=== PATIENT | male | born 1965 | race Caucasian/White ===

== ENCOUNTER → 2016-07-13 | Outpatient (CLI) | payer BC ==
--- NOTE | 2016-07-13 10:01 | RAD ---
PROCEDURE MRI study of the left wrist without contrast HISTORY Anterior wrist pain and burning. No known recent injury. No surgical history. TECHNIQUE Noncontrast MRI sequences of the left wrist were performed in all 3 planes. COMPARISON None available. FINDINGS No fracture or bone marrow edema or marrow infiltrative process or bone contusion is seen. There are degenerative cystic changes of the distal ulna and multiple carpal bones. Degenerative spurring of the radial carpal joint and the distal radial ulnar joint and multiple intercarpal joints is seen. The znesyj-gocyai-dpkpesix axis is normal. No avascular necrosis is seen. No widening of the scaphoid lunate joint compartment or the lunate triquetrum joint compartment is seen. The ligaments of these 2 compartments appear intact. There is signal abnormality of the triangular fibrocartilage complex medially and laterally. There is focal thinning or perforation of the radial attachment of this cartilage complex. A small distal radial ulnar joint effusion is seen. Small radiocarpal joint effusion and intercarpal joint effusions are seen. There is tendinosis and partial longitudinal tear of the extensor carpi ulnaris tendon which is dislocated medially out of the distal ulnar groove. Mild tenosynovitis is seen here. There is tendinosis and partial longitudinal tear of the flexor carpi radialis tendon. Mild tenosynovitis is seen here. The carpal tunnel is normal and no mass is seen here. 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 Multiple degenerative cystic changes are seen. This includes the distal ulna. This may be seen with old rheumatoid arthritis if there is a clinical history of such. Multiple joint effusions. No fracture or avascular necrosis is seen. Degeneration of the triangular fibrocartilage complex with focal thinning or perforation of the radial attachment of this complex. Ulnar variance is negative by 3 millimeters. Tendinosis and partial longitudinal tears with tenosynovitis involving the extensor carpi ulnaris tendon and the flexor carpi radialis tendon. The extensor carpi ulnaris tendon is dislocated medially out of the distal ulnar groove. Electronically signed by: Agustin Flores MD (Jul 13, 2016 09:59:51)
== END | disposition home or self-care (01) ==
LOC: MRI 07:41
PROVIDERS: ATTEND Orthopaedic Surgery Sports Medicine
DX: M19.032 Primary osteoarthritis, left wrist (principal); M25.432 Effusion, left wrist
CPT/HCPCS: 73221

== ENCOUNTER → 2017-11-08 | Outpatient (CLI) | payer BC ==
--- NOTE | 2017-11-08 16:48 | KCIC ---
EXAM: Maxillofacial bone CT without contrast. HISTORY: Cough. TECHNIQUE: Computed tomographic images of the maxillofacial bones were obtained without contrast. *One or more of the following individualized dose reduction techniques were utilized for this examination: 1. Automated exposure control. 2. Adjustment of the mA and/or kV according to patient size. 3. Use of iterative reconstruction technique. COMPARISON: None. FINDINGS: There is minimal superior right greater than left maxillary sinus mucosal thickening with slight attenuation of the right ostiomeatal unit. There is minimal nasal septal deviation. There is no air-fluid level. There is no sinus wall erosion or thickening. The orbits and mastoid air cells are unremarkable. The temporomandibular joints are intact. There is an unerupted tooth within the anterior right maxilla. IMPRESSION: No evidence of acute or chronic sinusitis. Electronically signed by: Shelli Chapa MD (11/08/2017 4:44 PM) [place] [id number]
== END | disposition home or self-care (01) ==
LOC: KCIC CT 12:13
PROVIDERS: ATTEND Otolaryngology
DX: J34.2 Deviated nasal septum (principal); K00.6 Disturbances in tooth eruption; R05 Cough
CPT/HCPCS: 70486

== ENCOUNTER → 2020-04-04 | Outpatient (CLI) | payer BC ==
[2017-12-16 14:47] VITALS: BP 123/80
[~2020-04-04] MED LIST: AMLO-187 PO; ASPI325T8 PO; HYDR-2765 PO; LOSA-73 PO; OMEP40CA7 PO; PROM25TA10 PO; RANI150T2 PO; VENL37.5 PO; VENL75TA PO
--- NOTE | 2020-04-04 16:58 | KCIC ---
MRI STUDY OF THE RIGHT KNEE WITHOUT CONTRAST CLINICAL INDICATIONS: Chronic lateral right knee pain. TECHNIQUE: T1 and T2 and proton density weighted MRI sequences of the right knee was performed. Image s were obtained in all 3 planes. COMPARISON: None available. FINDINGS: The anterior and posterior cruciate ligaments are intact. The quadriceps and patellar tendo ns are intact. Horizontal cleavage tear with intrameniscal cyst and parameniscal cyst is seen involvi ng the anterior horn of the lateral meniscus. The parameniscal cyst measures 7 mm in size. There is a horizontal cleavage tear of the body of the lateral meniscus with a parameniscal cyst measuring 6 mm in size. Mild truncation of the inner articular edge of the body of the lateral meniscus is seen. No articular surface tear of the medial meniscus is seen. The medial collateral ligament is intact and no meniscocapsular separation is seen. The lateral collateral ligament complex and iliotibial band an d popliteus tendon are intact. No posterior lateral corner injury is seen. No bone contusion or fract ure or marrow infiltrative process is seen. Small degenerative cyst of the lateral tibial spine is se en. There is mild chondromalacia and thinning of the articular cartilage of the medial femoral condyl e. There is moderate chondromalacia of the posterior aspect of the lateral femoral condyle articular cartilage with a linear defect seen extending posteriorly into the nonweightbearing portion. This is seen best on the axial images. There is mild degenerative spurring of the medial and lateral tibial f emoral joint compartments. There is mild lateral subluxation of the patella. The trochlear groove to anterior tibial tubercle distance is 16 mm which is within normal limits. There is moderate chondroma lacia patellae with linear fissure or defect of the medial patellar facet extending to the apex. Ther e is mild chondromalacia patellae of the lateral patellar facet. Trochlear articular cartilage is unr emarkable. The medial and lateral retinacular ligaments are intact. No distended Butt's cyst is seen . Small knee joint effusion is seen. No loose body is seen. No muscle edema is evident. IMPRESSION: Horizontal cleavage tears of the lateral meniscus with parameniscal cysts. Moderate chondromalacia with linear defect or flap of the posterior aspect of the lateral femoral art icular cartilage. Mild chondromalacia of the medial femoral condyle. Moderate chondromalacia patellae. No ligament or tendon tear. Electronically signed by: Agustin Flores MD (04/04/2020 4:55 PM) [id number]
== END ==
LOC: KCIC MRI 14:02
PROVIDERS: ATTEND Physician Assistant Medical
DX: S83.281A Other tear of lateral meniscus, current injury, right knee, initial encounter (principal); M17.11 Unilateral primary osteoarthritis, right knee; M25.461 Effusion, right knee; X58.XXXA Exposure to other specified factors, initial encounter; Y93.89 Activity, other specified; Y92.89 Other specified places as the place of occurrence of the external cause; Y99.8 Other external cause status
CPT/HCPCS: 73721

== ENCOUNTER → 2020-04-16 | Outpatient (CLI) | payer BC ==
[2017-12-16 14:47] VITALS: BP 123/80
== END ==
LOC: LAB 11:39
PROVIDERS: ATTEND Orthopaedic Surgery
DX: Z01.812 Encounter for preprocedural laboratory examination (principal); Z20.828 Contact with and (suspected) exposure to other viral communicable diseases
CPT/HCPCS: U0003

== ENCOUNTER 2020-04-19 07:06 | Day surgery (SDC) | payer BC ==
[~2020-04-19] VITALS: Ht 180.3 cm; Wt 132.0 kg
[~2020-04-19 07:06] MED LIST changes: -ASPI325T8 PO; -HYDR-2765 PO; +OMEP40CA45 PO; -OMEP40CA7 PO; -PROM25TA10 PO; +ceFAZolin SODIUM 3 GM in IV DEXTROSE 5% 100ML 100 ML IV PRN
[2020-04-19] MEDS: IV RINGERS,LACTATED 1000ML 1,000 ML IV SCH ×4 (07:51→09:59)
[2020-04-19] MEDS ORDERED: HYDROmorphone 2 MG/ML VIAL IVP PRN (08:00)
[2020-04-19] MEDS ORDERED: PROCHLORPERAZINE 10 MG/2 ML VIAL. IVP PRN (08:00)
[2020-04-19] MEDS ORDERED: MORPHINE SULFATE 2 MG/ML VIAL. IVP PRN (08:00)
[2020-04-19] MEDS ORDERED: fentaNYL PF VIAL 100 MCG/2 ML VIAL IVP PRN (08:00)
[2020-04-19] MEDS ORDERED: DEXAMETHASONE SOD PHOS 4 MG/ML VIAL ONE (08:37)
[2020-04-19] MEDS ORDERED: LIDOCAINE 2% PF 5 ML VIAL. ONE (08:37)
[2020-04-19] MEDS ORDERED: PROPOFOL 10 MG/ML (20ML) VIAL. IV ONE (08:37)
[2020-04-19] MEDS ORDERED: fentaNYL PF VIAL 100 MCG/2 ML VIAL ONE ×2 (08:37→10:57)
[2020-04-19] MEDS ORDERED: ONDANSETRON PF 4 MG/2 ML VIAL. ONE (08:37)
[2020-04-19] MEDS ORDERED: EPINEPHrine VIAL 30 MG/30 ML VIAL ONE (09:03)
[2020-04-19] MEDS ORDERED: BUPIVACAINE-EPI 0.25% 30 ML VIAL KIT. ONE ×2 (09:04→09:39)
[2020-04-19] MEDS ORDERED: KETOROLAC 30 MG/ML VIAL. ONE (09:30)
[2020-04-19] MEDS ORDERED: SEVOFLURANE 61 TO 120 MINUTES. IH ONE (09:30)
--- NOTE | 2020-04-19 10:08 | PDOC4 ---
Operative Note Operative Note Date of Procedure: April 19, 2020 Preoperative Diagnosis: right knee lateral meniscus tear Postoperative Diagnosis: complex tear of lateral meniscus, current injury, right knee, initial encounter, S83.271A complex tear medial meniscus, current injury, right knee, initial encounter, S83.231A Procedures Performed: right knee arthroscopy, surgical, with meniscectomy, medial AND lateral, including meniscal shaving, including debridement/shaving of articular cartilage (chondroplasty) CPT 89115 Surgeon: Dorene Prieto MD Director Financial Planning: ADELINA Glaser Anesthesia: General Estimated Blood Loss: 25 mL Specimens: none Drains: none Complications: none Tourniquet time: 38 minutes at 350 mm Hg Indications for Procedure: The patient is a 54-year-old with right knee pain, unrelieved with nonoperative treatment. Exam and MRI are consistent with a meniscus tear. We talked about the risks and benefits of proceeding with an arthroscopic procedure. We talked about potential risks of ongoing pain, progressive arthritis, bleeding, infection, blood clots, or other potential surgical or anesthetic complications. All of the patient's questions about surgery were answered and they desired to proceed. Written consent was obtained. Description of Operation: The patient was identified in the preoperative holding area. The correct right knee was marked by me. The patient was taken to the operating room, where a general anesthetic was used. Preoperative antibiotics were given intravenously. A time-out procedure was performed. A tourniquet was placed on the upper thigh. Local anesthetic 20 mL of 0.25% bupivacaine was injected using sterile technique into the knee joint. The limb was prepared circumferentially with ChloraPrep solution and sterile waterproof arthroscopy drapes were applied. The limb was exsanguinated with an Esmarch bandage and the tourniquet was inflated. Lateral and medial arthroscopy portals were established. The medial meniscus showed a complex root tear with detachment of the posterior one third, which made the entire posterior meniscus unstable. A meniscectomy was performed with basket forceps and the motorized shaver back to a smooth stable base, removing most of the posterior one third of the meniscus and the resection tapered into the middle one-third of the meniscus. The medial tibiofemoral joint showed ch ondromalacia Outerbridge grade III, and a shaving chondroplasty was performed removing unstable fragments of cartilage with the shaver.The intercondylar notch was free of loose bodies, and the ACL was intact. The lateral tibiofemoral joint showed a complex tear of the anterior and middle one third areas of the meniscus with unstable fibers extending into a meniscal cyst. The anterior one third of the meniscus laterally was removed, and meniscectomy was performed with basket forceps and the motorized shaver back to a smooth stable base tapering the resection into the middle and posterior one thirds of the meniscus. The lateral articular surfaces showed chondromalacia Outerbridge grade III, and a shaving chondroplasty was performed removing unstable fragments of cartilage with the shaver. The patellofemoral joint showed chondromalacia Outerbridge grade III, and a shaving chondroplasty was performed removing unstable fragments of cartilage with the shaver. The suprapatellar pouch, medial and lateral gutters were free of loose bodies. Copious irrigation was used to drain all meniscal and chondral fragments, and the knee was drained of fluid. The portals were closed with #3-0 Prolene interrupted sutures. Additional local anesthetic, 30 mL of 0.25% bupivacaine with epinephrine was injected. A bulky sterile dressing was applied and the tourniquet was released. Needle and sponge counts were correct and there were no apparent complications. DORENE PRIETO MD Apr 19, 2020 10:08
[2020-04-19] MEDS ORDERED: HYDROcodone/APAP 7.5/325MG 1 TAB TABLET PO ONE ×2 (10:15)
[2020-04-19] MEDS: fentaNYL PF VIAL 100 MCG/2 ML VIAL IVP PRN ×2 (10:59→11:14)
[2020-04-19] MEDS ORDERED: HYDR-2765 PO (11:05)
[2020-04-19] MEDS ORDERED: PROM25TA10 PO ×2 (11:07→11:08)
[2020-04-19] MEDS ORDERED: ASPI325T8 PO (11:09)
[2020-04-19 12:00] VITALS: BP 160/90
== END 2020-04-19 12:35 | disposition home or self-care (01) ==
LOC: SURG 07:06
PROVIDERS: ATTEND Orthopaedic Surgery
DX: S83.271A Complex tear of lateral meniscus, current injury, right knee, initial encounter (principal); S83.231A Complex tear of medial meniscus, current injury, right knee, initial encounter; I10 Essential (primary) hypertension; M19.90 Unspecified osteoarthritis, unspecified site; G47.30 Sleep apnea, unspecified; F32.9 Major depressive disorder, single episode, unspecified; Z79.82 Long term (current) use of aspirin; Z79.899 Other long term (current) drug therapy; Z98.890 Other specified postprocedural states; Z72.89 Other problems related to lifestyle; X58.XXXA Exposure to other specified factors, initial encounter; Y93.89 Activity, other specified; Y92.89 Other specified places as the place of occurrence of the external cause; Y99.8 Other external cause status
CPT/HCPCS: 29880; 97110; 97116; 97162; J0171; J1100; J1885; J2405; J2704; J3010